=== PATIENT | male | born 1940 | race Caucasian/White ===

== ENCOUNTER 2019-03-29 15:41 | Observation (INO) ==
[2019-03-29] MEDS ORDERED: SODIUM CHLORIDE 0.9% 1,000 ML IV STA (16:55)
[2019-03-29 17:10] LABS: Basophils % 0.1 % (0.0-0.8); Hematocrit 41.6 VOL% (42.0-52.0); Hemoglobin 13.7 GM/DL (14.0-18.0); Immature Granulocytes % 0.5 %; Immature Granulocytes Absolute 0.07 #; Lymphocytes # 0.9 10*3/uL (1.4-4.0); Lymphocytes % 5.9 % (21.2-54.2); Mean Corpuscular HGB Conc 32.9 GM/DL (32-36); Mean Corpuscular Volume 98.6 FL (87-102); Mean Platelet Volume 10.7 FL (9.6-12.0); Monocytes % 14.5 % (1.7-12.7); Platelet Count 145 T/CUMM (130-400); Red Blood Count 4.22 MC/CUMM (3.8-5.5); Red Cell Distribution Width 12.3 % (9.3-17.3); White Blood Count 14.9 T/CUMM (4-12)
[2019-03-29 17:38] LABS: Albumin 3.9 G/DL (3.4-5.0); Bilirubin,Total 0.9 MG/DL (0.2-1.0); Calcium 9.9 MG/DL (8.5-10.1); Osmolality,Calculated 286.4 MOS/KG (273-304); Total Protein 8.1 G/DL (6.4-8.3)
[2019-03-29] MEDS ORDERED: ACETAMINOPHEN 325 MG TABLET PO PRN (17:56)
[2019-03-29] MEDS ORDERED: ONDANSETRON 4 MG/2 ML VIAL IV PRN (17:56)
[2019-03-29] MEDS: CIPROFLOXACIN INJ 400 MG in PREMIX 1 EACH IV SCH (18:16)
[2019-03-29] MEDS: SODIUM CHLORIDE 0.9% 1,000 ML IV SCH (18:16)
[2019-03-29] MEDS: DOCUSATE SODIUM 100 MG CAPSULE PO SCH (21:27)
[2019-03-29] MEDS: metroNIDAZOLE INJ 500 MG in PREMIX 1 EACH IV SCH (21:28)
[2019-03-30] MEDS: SODIUM CHLORIDE 0.9% 1,000 ML IV SCH ×3 (03:38→20:35)
[2019-03-30] MEDS: metroNIDAZOLE INJ 500 MG in PREMIX 1 EACH IV SCH ×3 (05:19→23:30)
[2019-03-30 06:02] LABS: Apearance,Urine CLEAR (Clear); Bilirubin,Urine Negative (Negative); Blood, Urine Negative (Negative); Glucose,Urine (UA) Negative (Negative); Hyaline Casts,Urine 1 /LPF (0-3); Ketones,Urine Negative (Negative); Mucus,Urine Occasional /LPF (Occasional); Nitrite,Urine Negative (Negative); Protein,Urine Negative; RBC,Urine 1 /HPF (0-4); Urine Color Yellow (Yellow); Urine Specific Gravity 1.011 (1.001-1.035); Urine Urobilinogen < 2.0 EU/DL (0.2-1.0)
[2019-03-30] MEDS: CIPROFLOXACIN INJ 400 MG in PREMIX 1 EACH IV SCH ×2 (06:23→20:30)
[2019-03-30] MEDS ORDERED: SODIUM CHLORIDE 0.9% 500 ML IV STA (07:55)
[2019-03-30] MEDS: CHOLECALCIFEROL 1,000 UNIT TABLET PO SCH (09:37)
[2019-03-30] MEDS: CYANOCOBALAMIN 500 MCG TABLET PO SCH (09:37)
[2019-03-30] MEDS: ASPIRIN EC 81 MG TABLET PO SCH (09:37)
[2019-03-30] MEDS: DOCUSATE SODIUM 100 MG CAPSULE PO SCH ×2 (09:38→20:30)
[2019-03-30] MEDS: SELENIUM 200 MCG TABLET PO SCH (09:38)
[2019-03-30] MEDS: COENZYME Q10 100 MG CAPSULE PO SCH (09:39)
[2019-03-30] MEDS: MEMANTINE 10 MG TABLET PO SCH ×2 (09:39→20:30)
[2019-03-30] MEDS: MULTIVITAMIN (CENTRUM) TABLET PO SCH (10:00)
[2019-03-30] MEDS ORDERED: BISACODYL 10 MG SUPP RECTAL ONE (11:00)
[2019-03-30] MEDS: POLYETHYLENE GLYCOL POWDER 17 GM PACK PO SCH (11:22)
[2019-03-30] MEDS ORDERED: ROSUVASTATIN 20 MG TABLET PO SCH (21:00)
[2019-03-30] MEDS ORDERED: DONEPEZIL 10 MG TABLET PO SCH (21:00)
[2019-03-30] MEDS ORDERED: AMITRIPTYLINE 50 MG TABLET PO SCH (21:00)
[2019-03-31 05:10] LABS: Basophils # 0.1 10*3/uL (0.0-0.2); Basophils % 0.6 % (0.0-0.8); Eosinophils # 0.2 10*3/uL (0.0-0.87); Hematocrit 35.9 VOL% (42.0-52.0); Hemoglobin 11.5 GM/DL (14.0-18.0); Immature Granulocytes % 0.5 %; Immature Granulocytes Absolute 0.04 #; Lymphocytes # 0.9 10*3/uL (1.4-4.0); Lymphocytes % 11.6 % (21.2-54.2); Mean Platelet Volume 10.7 FL (9.6-12.0); Monocytes % 14.3 % (1.7-12.7); Platelet Count 116 T/CUMM (130-400); Red Blood Count 3.59 MC/CUMM (3.8-5.5); Red Cell Distribution Width 12.1 % (9.3-17.3); White Blood Count 8.1 T/CUMM (4-12)
[2019-03-31 05:56] LABS: Calcium 8.4 MG/DL (8.5-10.1); Osmolality,Calculated 289.8 MOS/KG (273-304)
[2019-03-31] MEDS: metroNIDAZOLE INJ 500 MG in PREMIX 1 EACH IV SCH (06:33)
[2019-03-31 07:29] VITALS: BP 146/72
[2019-03-31] MEDS: DOCUSATE SODIUM 100 MG CAPSULE PO SCH (08:03)
[2019-03-31] MEDS: MULTIVITAMIN (CENTRUM) TABLET PO SCH (08:03)
[2019-03-31] MEDS: POLYETHYLENE GLYCOL POWDER 17 GM PACK PO SCH (08:03)
[2019-03-31] MEDS: CYANOCOBALAMIN 500 MCG TABLET PO SCH (08:03)
[2019-03-31] MEDS: ASPIRIN EC 81 MG TABLET PO SCH (08:03)
[2019-03-31] MEDS: CHOLECALCIFEROL 1,000 UNIT TABLET PO SCH (08:03)
[2019-03-31] MEDS: SELENIUM 200 MCG TABLET PO SCH (08:04)
[2019-03-31] MEDS: COENZYME Q10 100 MG CAPSULE PO SCH (08:04)
[2019-03-31] MEDS: MEMANTINE 10 MG TABLET PO SCH (08:04)
[2019-03-31] MEDS: CIPROFLOXACIN INJ 400 MG in PREMIX 1 EACH IV SCH (08:07)
[2019-03-31] MEDS: SODIUM CHLORIDE 0.9% 1,000 ML IV SCH (10:17)
== END 2019-03-31 10:12 | disposition home or self-care (01) ==
LOC: N.EDINP 15:41 → N.ED 15:41 → N.2E 19:12
PROVIDERS: ADMIT Family Medicine; ATTEND Family Medicine

== ENCOUNTER 2020-12-13 12:22 | Inpatient (IN) ==
[2020-12-13] MEDS ORDERED: GLUCAGON 1 MG VIAL IM PRN (12:24)
[2020-12-13] MEDS ORDERED: ONDANSETRON 4 MG/2 ML VIAL IV PRN (12:24)
[2020-12-13] MEDS ORDERED: DEXTROSE 50% 25 GM/50 ML VIAL IV PRN (12:24)
[2020-12-13] MEDS: SODIUM CHLORIDE 0.45% 1,000 ML IV SCH ×2 (13:44→20:42)
[2020-12-13 14:11] LABS: Basophils % 0.4 % (0.0-0.8); Eosinophils # 0.2 10*3/uL (0.0-0.87); Eosinophils % 2.4 % (0.00-10.9); Hemoglobin 14.2 GM/DL (14.0-18.0); Immature Granulocytes % 0.3 %; Immature Granulocytes Absolute 0.03 #; Lymphocytes # 1.2 10*3/uL (1.4-4.0); Lymphocytes % 12.7 % (21.2-54.2); Mean Corpuscular Volume 100.2 FL (87-102); Mean Platelet Volume 9.9 FL (9.6-12.0); Monocytes % 10.9 % (1.7-12.7); Neutrophils % 73.3 % (38.7-73.9); Platelet Count 187 T/CUMM (130-400); Red Blood Count 4.29 MC/CUMM (3.8-5.5); Red Cell Distribution Width 12.3 % (9.3-17.3); White Blood Count 9.6 T/CUMM (4-12)
[2020-12-13 14:39] LABS: Albumin 4.1 G/DL (3.4-5.0); Bilirubin,Total 0.6 MG/DL (0.2-1.0); Calcium 9.3 MG/DL (8.5-10.1); Osmolality,Calculated 280.4 MOS/KG (273-304); Potassium 3.6 MMOL/L (3.5-5.1); Total Protein 8.5 G/DL (6.4-8.2)
[2020-12-13] MEDS ORDERED: LIDOCAINE 2% TOP JELLY 20 ML VIAL INTRAURETH ONE (15:31)
[2020-12-13] MEDS: INSULIN LISPRO 100 UNIT/ML SUBCUT SCH ×2 (16:08→20:40)
[2020-12-13] MEDS: LORazepam 2 MG/1 ML VIAL IV PRN (17:18)
[2020-12-13 17:28] LABS: Bilirubin,Urine Negative (Negative); Blood, Urine Small mg/dL (Negative); Glucose,Urine (UA) Negative (Negative); Granular Casts,Urine 1 /LPF (0-1); Hyaline Casts,Urine 1 /LPF (0-3); Ketones,Urine Negative (Negative); Mucus,Urine Occasional /LPF (Occasional); Nitrite,Urine Negative (Negative); Protein,Urine Negative; RBC,Urine 2 /HPF (0-4); Squamous Epithelial Cell,Urine Occasional /HPF (0-10); Urine Appearance CLEAR (Clear); Urine Color Yellow (Yellow); Urine Urobilinogen < 2.0 EU/DL (0.2-1.0); WBC,Urine 1 /HPF (0-6)
[2020-12-13] MEDS: MEMANTINE 10 MG TABLET PO SCH (20:40)
[2020-12-13] MEDS: QUEtiapine 25 MG TABLET PO SCH (20:41)
[2020-12-13] MEDS: PRAZOSIN 1 MG CAPSULE PO SCH (20:41)
[2020-12-13] MEDS: ROSUVASTATIN 20 MG TABLET PO SCH (20:41)
[2020-12-13] MEDS: DOCUSATE SODIUM 100 MG CAPSULE PO SCH (20:41)
[2020-12-13] MEDS: ENOXAPARIN 40 MG/0.4 ML SYRINGE SUBCUT SCH (20:42)
[2020-12-13] MEDS ORDERED: ROSUVASTATIN 20 MG TABLET PO SCH (21:00)
[2020-12-14] MEDS: SODIUM CHLORIDE 0.45% 1,000 ML IV SCH ×3 (04:35→20:46)
[2020-12-14] MEDS: PANTOPRAZOLE 40 MG TABLET PO SCH (05:34)
[2020-12-14] MEDS: INSULIN LISPRO 100 UNIT/ML SUBCUT SCH ×4 (08:07→20:43)
[2020-12-14] MEDS: GLIMEPIRIDE 2 MG TABLET PO SCH (08:29)
[2020-12-14] MEDS: MULTIVITAMIN (CENTRUM) TABLET PO SCH (08:29)
[2020-12-14] MEDS: LOSARTAN 50 MG TABLET PO SCH (08:29)
[2020-12-14] MEDS: MEMANTINE 10 MG TABLET PO SCH ×2 (08:30→20:35)
[2020-12-14] MEDS: amLODIPine 10 MG TABLET PO SCH (08:30)
[2020-12-14] MEDS: DOCUSATE SODIUM 100 MG CAPSULE PO SCH ×2 (08:30→20:35)
[2020-12-14] MEDS: QUEtiapine 25 MG TABLET PO SCH ×2 (08:30→20:35)
[2020-12-14] MEDS ORDERED: CHOLECALCIFEROL 1000 UNIT PO SCH (09:00)
[2020-12-14] MEDS ORDERED: NON-FORMULARY MEDICATION (Selenium 200 MCG capsule) PO SCH (09:00)
[2020-12-14] MEDS ORDERED: POLYETHYLENE GLYCOL POWDER 17 GM PACK PO SCH (09:00)
[2020-12-14] MEDS ORDERED: NON-FORMULARY MEDICATION (Cyanocobalamin (Vitamin B-12) [Vitamin B-12] 1,000 MCG tablet) PO SCH (09:00)
[2020-12-14] MEDS ORDERED: COENZYME Q10 100 MG CAPSULE PO SCH (09:00)
[2020-12-14] MEDS: LORazepam 2 MG/1 ML VIAL IV PRN ×2 (10:34→16:23)
[2020-12-14] MEDS: HALOPERIDOL 5 MG/ML AMP IM PRN (13:47)
[2020-12-14] MEDS: ENOXAPARIN 40 MG/0.4 ML SYRINGE SUBCUT SCH (20:35)
[2020-12-14] MEDS: PRAZOSIN 1 MG CAPSULE PO SCH (20:35)
[2020-12-14] MEDS: ROSUVASTATIN 20 MG TABLET PO SCH (20:43)
[2020-12-15] MEDS: HALOPERIDOL 5 MG/ML AMP IM PRN ×2 (05:27→17:10)
[2020-12-15] MEDS: SODIUM CHLORIDE 0.45% 1,000 ML IV SCH ×3 (05:32→21:38)
[2020-12-15] MEDS: PANTOPRAZOLE 40 MG TABLET PO SCH (06:18)
[2020-12-15] MEDS ORDERED: cefTRIAXone 1,000 MG in SODIUM CHLORIDE 0.9% 100 ML IV ONE (07:00)
[2020-12-15] MEDS: INSULIN LISPRO 100 UNIT/ML SUBCUT SCH ×4 (09:42→21:23)
[2020-12-15] MEDS: LOSARTAN 50 MG TABLET PO SCH (09:46)
[2020-12-15] MEDS: amLODIPine 10 MG TABLET PO SCH (09:46)
[2020-12-15] MEDS: DOCUSATE SODIUM 100 MG CAPSULE PO SCH ×2 (10:20→20:57)
[2020-12-15] MEDS: MEMANTINE 10 MG TABLET PO SCH ×2 (10:20→20:57)
[2020-12-15] MEDS: MULTIVITAMIN (CENTRUM) TABLET PO SCH (10:21)
[2020-12-15] MEDS: GLIMEPIRIDE 2 MG TABLET PO SCH (10:23)
[2020-12-15] MEDS: QUEtiapine 25 MG TABLET PO SCH ×2 (10:23→20:57)
[2020-12-15] MEDS ORDERED: fentaNYL 100 MCG/2 ML VIAL ONE (11:46)
[2020-12-15] MEDS ORDERED: LIDOCAINE 2% TOP JELLY 20 ML VIAL INTRAURETH ONE (11:50)
[2020-12-15] MEDS ORDERED: propofoL 200 MG/20 ML VIAL IV ONE ×2 (11:50→12:11)
[2020-12-15] MEDS: ENOXAPARIN 40 MG/0.4 ML SYRINGE SUBCUT SCH (20:56)
[2020-12-15] MEDS: PRAZOSIN 1 MG CAPSULE PO SCH (20:57)
[2020-12-15] MEDS: ROSUVASTATIN 20 MG TABLET PO SCH (20:57)
[2020-12-16] MEDS: ACETAMINOPHEN 325 MG TABLET PO PRN (01:42)
[2020-12-16] MEDS: SODIUM CHLORIDE 0.45% 1,000 ML IV SCH ×2 (05:35→11:44)
[2020-12-16] MEDS: PANTOPRAZOLE 40 MG TABLET PO SCH ×2 (06:00→07:02)
[2020-12-16] MEDS: LORazepam 2 MG/1 ML VIAL IV PRN (07:40)
[2020-12-16] MEDS: INSULIN LISPRO 100 UNIT/ML SUBCUT SCH ×4 (07:43→22:02)
[2020-12-16] MEDS: MEMANTINE 10 MG TABLET PO SCH ×2 (08:13→20:31)
[2020-12-16] MEDS: QUEtiapine 25 MG TABLET PO SCH ×2 (08:13→20:31)
[2020-12-16] MEDS: amLODIPine 10 MG TABLET PO SCH (08:13)
[2020-12-16] MEDS: GLIMEPIRIDE 2 MG TABLET PO SCH (08:13)
[2020-12-16] MEDS: LOSARTAN 50 MG TABLET PO SCH (08:13)
[2020-12-16] MEDS: MULTIVITAMIN (CENTRUM) TABLET PO SCH (08:13)
[2020-12-16] MEDS: DOCUSATE SODIUM 100 MG CAPSULE PO SCH ×2 (08:13→20:31)
[2020-12-16] MEDS: HALOPERIDOL 5 MG/ML AMP IM PRN ×2 (10:15→18:12)
[2020-12-16] MEDS: PRAZOSIN 1 MG CAPSULE PO SCH (20:31)
[2020-12-16] MEDS: ENOXAPARIN 40 MG/0.4 ML SYRINGE SUBCUT SCH (20:31)
[2020-12-16] MEDS: ROSUVASTATIN 20 MG TABLET PO SCH (20:31)
[2020-12-17] MEDS: SODIUM CHLORIDE 0.45% 1,000 ML IV SCH ×3 (01:14→17:44)
[2020-12-17] MEDS: PANTOPRAZOLE 40 MG TABLET PO SCH (05:31)
[2020-12-17] MEDS: INSULIN LISPRO 100 UNIT/ML SUBCUT SCH ×3 (07:43→15:37)
[2020-12-17] MEDS: amLODIPine 10 MG TABLET PO SCH (09:20)
[2020-12-17] MEDS: MULTIVITAMIN (CENTRUM) TABLET PO SCH (09:20)
[2020-12-17] MEDS: LOSARTAN 50 MG TABLET PO SCH (09:21)
[2020-12-17] MEDS: QUEtiapine 25 MG TABLET PO SCH (09:21)
[2020-12-17] MEDS: DOCUSATE SODIUM 100 MG CAPSULE PO SCH (09:21)
[2020-12-17] MEDS: MEMANTINE 10 MG TABLET PO SCH (09:21)
[2020-12-17] MEDS: GLIMEPIRIDE 2 MG TABLET PO SCH (09:21)
[2020-12-17] MEDS: ALFUZOSIN 10 MG TABLET PO SCH ×2 (09:26→10:01)
[2020-12-17] MEDS: LORazepam 2 MG/1 ML VIAL IV PRN (12:22)
[2020-12-17] MEDS: ACETAMINOPHEN 325 MG TABLET PO PRN (13:24)
[2020-12-17 15:30] VITALS: BP 135/84
== END 2020-12-17 17:43 | disposition home health service (06) | DRG 699 ==
LOC: N.5E 12:50 → INTOOBSV 12:50
PROVIDERS: ADMIT Family Medicine; ATTEND Family Medicine